=== PATIENT | female | born 1960 | race Caucasian/White ===

== ENCOUNTER 2016-08-06 09:08 | Emergency (ER) | payer BC ==
[2016-08-06 09:56] LABS: BASOPHILS 0.3 % (0-2); EOSINOPHILS 0.9 % (0-7); HEMATOCRIT 43.8 % (36.0-48.0); HEMOGLOBIN 14.8 g/dL (12-16); IMMATURE GRANULOCYTES 0.4 % (0-5); LYMPHOCYTES 13.7 % (15-50); MCH 31.7 pg (26.0-34.0); MCHC 33.8 g/dL (31.0-37.0); MCV 93.8 fL (80.0-100.0); MEAN PLATELET VOLUME 9.1 fL (7.4-10.4); MONOCYTES 7.7 % (2-11); PLATELET COUNT 206 10x3/uL (130-400); RBC 4.67 10x6/uL (4.00-5.40); RDW 13.6 % (11.5-14.5); WBC 11.2 10x3/uL (4.8-10.8)
[2016-08-06 10:13] LABS: ALBUMIN 2.6 g/dL (3.4-5.0); ANION GAP 8.1 mmol/L (8-16); BILIRUBIN - TOTAL 0.19 mg/dL (0.2-1.3); CALCIUM 8.8 mg/dL (8.5-10.1); CARBON DIOXIDE 29.9 mmol/L (21.0-32.0); PROTEIN - SERUM 6.7 g/dL (6.4-8.2)
[2016-08-06 10:33] LABS: APPEARANCE HAZY (CLEAR); BILIRUBIN NEGATIVE (NEGATIVE); COLOR YELLOW (YELLOW); GLUCOSE NEGATIVE (NEGATIVE); KETONE NEGATIVE (NEGATIVE); LEUKOCYTE ESTERASE TRACE (NEGATIVE); NITRITE NEGATIVE (NEGATIVE); PROTEIN 3+ mg/dL (NEGATIVE); SPECIFIC GRAVITY 1.015 (1.005-1.020); UROBILINOGEN NORMAL (NORMAL)
[2016-08-06 10:35] LABS: BACTERIA MODERATE /hpf (NONE SEEN); EPITHELIAL CELLS 0-5 /hpf (0-5); WHITE CELLS - URINE 0-5 /hpf (0-5)
[2016-08-06 10:36] LABS: GRANULAR CAST OCC /lpf (NONE SEEN)
== END 2016-08-06 13:13 | disposition home or self-care (01) ==
LOC: D.ER 09:08
PROVIDERS: Emergency Medicine
DX: K57.92 Diverticulitis of intestine, part unspecified, without perforation or abscess without bleeding (principal); N28.1 Cyst of kidney, acquired; K76.9 Liver disease, unspecified; I10 Essential (primary) hypertension; M79.7 Fibromyalgia; F17.200 Nicotine dependence, unspecified, uncomplicated

== ENCOUNTER → 2016-11-04 07:57 | Outpatient (CLI) | payer BC | END | disposition home or self-care (01) | LOC: D.LAB 07:57 → D.MRI 08:30 | DX: K57.92 Diverticulitis of intestine, part unspecified, without perforation or abscess without bleeding (principal); K76.0 Fatty (change of) liver, not elsewhere classified ==

== ENCOUNTER → 2017-03-04 08:00 | Outpatient (CLI) | payer BC | END | disposition home or self-care (01) | LOC: D.RAD 08:00 | DX: K21.9 Gastro-esophageal reflux disease without esophagitis (principal) ==